=== PATIENT | female | born 1960 | race Caucasian/White ===

== ENCOUNTER → 2023-11-13 07:12 | Outpatient (REF) | payer BC, SELFPAY | LOC: HWWDC 07:12 | PROVIDERS: ATTENDING PHYSICIAN Obstetrics & Gynecology; FAMILY PHYSICIAN Physician Assistant Medical | DX: Z12.31 Encounter for screening mammogram for malignant neoplasm of breast (principal) | CPT/HCPCS: 77063; 77067 ==

== ENCOUNTER → 2024-11-19 08:06 | Outpatient (REF) | payer BC, SELFPAY | LOC: HWWDC 08:06 | PROVIDERS: ATTENDING PHYSICIAN Obstetrics & Gynecology; FAMILY PHYSICIAN Physician Assistant Medical | DX: Z78.0 Asymptomatic menopausal state (principal); Z12.31 Encounter for screening mammogram for malignant neoplasm of breast | CPT/HCPCS: 77063; 77067 ==

== ENCOUNTER → 2025-03-30 08:14 | Outpatient (REF) | payer BC, SELFPAY | LOC: HWRAD 08:14 | PROVIDERS: ATTENDING PHYSICIAN Physician Assistant Medical | DX: M25.551 Pain in right hip (principal); M25.552 Pain in left hip; M54.41 Lumbago with sciatica, right side | CPT/HCPCS: 72110; 73522 ==